=== PATIENT | female | born 1955 | race African-American/Black ===

== ENCOUNTER 2023-06-06 10:30 | Emergency (ER) | payer MEDICARE, SELFPAY ==
--- NOTE | ~2023-06-06 | XR_ITS ---
EXAMINATION: XR chest 2V DATE: 06/06/2023 11:18 INDICATION: Productive cough. TECHNIQUE: Frontal and lateral views of the chest were obtained. COMPARISON: None. FINDINGS: There is no pneumonia, pleural effusion, or pneumothorax. The heart size is normal. Epidura l electrodes are noted. There are changes of posterior fusion procedure in lumbar spine. IMPRESSION: 1. No acute cardiopulmonary disease. Reviewed, dictated and finalized at location E. 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
--- NOTE | 2023-06-06 10:37 | ED.URI ---
HPI - URI/Sore Throat General Chief Complaint: Upper Respiratory Infection Stated Complaint: discharge both eyes,ear pain,cough Time Seen by Provider: 06/06/23 10:37 Source: patient Mode of arrival: ambulatory Limitations: no limitations History of Present Illness HPI Narrative: Trini is a 67-year-old female patient presenting to the clinic today with complaints of a cough x1 month. Cough is productive bringing up some yellow phlegm. She denies any shortness of breath, fever, chills, or body aches. Also reports she is having some discharge coming from both of her eyes and bilateral ear pain. MD elicited complaint: sore throat and nasal congestion Related Data Home Medications Medication Instructions Recorded Confirmed aspirin 81 mg tablet,delayed 81 mg PO DAILY 10/07/19 06/06/23 release atorvastatin 40 mg tablet 40 mg PO QPM 10/07/19 06/06/23 cyanocobalamin (vitamin B-12) 100 mcg subcut MONTHLY 10/07/19 06/06/23 1,000 mcg/mL injection kit docusate sodium 50 mg capsule 50 mg PO DAILY 10/07/19 06/06/23 (Stool Softener) ergocalciferol (vitamin D2) 1,250 50,000 unit PO WEEKLY 10/07/19 06/06/23 mcg (50,000 unit) capsule fentanyl 50 mcg/hr transdermal 1 patch transdermal Q72H 10/07/19 06/06/23 patch (Duragesic) flash glucose sensor (FreeStyle #1 ea 10/07/19 06/06/23 Todd 14 Day Sensor kit) hydrochlorothiazide 25 mg tablet 25 mg PO DAILY 10/07/19 06/06/23 hydromorphone 4 mg tablet 4 mg PO .QD 10/07/19 06/06/23 (Dilaudid) insulin aspart U-100 100 unit/mL 12 unit subcut TID 10/07/19 06/06/23 (3 mL) subcutaneous pen (Novolog FlexPen U-100 Insulin aspart) ipratropium 20 mcg-albuterol 100 1 puff inhalation QID 10/07/19 06/06/23 mcg/actuation mist for inhalation (Combivent Respimat) metoprolol tartrate 25 mg tablet 12.5 mg PO BID 10/07/19 06/06/23 nitroglycerin 0.4 mg sublingual 0.4 mg sublingual Q5M PRN Chest 10/07/19 06/06/23 tablet Pain pregabalin 100 mg capsule (Lyrica) 100 mg PO TID 10/07/19 06/06/23 prucalopride 2 mg tablet 2 mg PO DAILY 10/07/19 06/06/23 (Motegrity) insulin glargine 100 unit/mL (3 30 unit subcut QAM 01/01/20 06/06/23 mL) subcutaneous pen (Lantus Solostar U-100 Insulin) buprenorphine HCl 750 mcg buccal See Rx Instructions .Route .COMPLEX 06/06/23 06/06/23 film (Belbuca) clonazepam 0.5 mg tablet 0.5 mg PO HS 06/06/23 06/06/23 cyclobenzaprine 10 mg tablet See Rx Instructions .Route .COMPLEX 06/06/23 06/06/23 folic acid 1 mg tablet 1 mg PO DAILY 06/06/23 06/06/23 glimepiride 4 mg tablet 4 mg PO BID 06/06/23 06/06/23 omeprazole 20 mg capsule,delayed 20 mg PO DAILY 06/06/23 06/06/23 release sertraline 25 mg tablet 25 mg PO DAILY 06/06/23 06/06/23 Allergies Allergy/AdvReac Type Severity Reaction Status Date / Time lisinopril Allergy Severe facial Verified 06/06/23 10:46 swelling ciprofloxacin Allergy Unknown Unknown Verified 06/06/23 10:46 oxybutynin Allergy Unknown Unknown Verified 06/06/23 10:46 Sulfa (Sulfonamide Allergy Unknown Unknown Verified 06/06/23 10:46 Antibiotics) Review of Systems Review of Systems: Pertinent positives per HPI. Patient denies any fever, chills, rash, headache, visual changes, dizziness, shortness of breath, chest pain, palpitations, nausea, vomiting, diarrhea, constipation, abdominal pain, or any urinary issues. [facility] Past Medical History Medical History (Updated 06/06/23 @ 12:11 by Andrés Rueda APRN) Back pain Chest pain COPD (chronic obstructive pulmonary disease) Depression Diabetes Hypertension Shortness of breath Surgical History Surgical History H/O endoscopy 06/24/19 and 08/19/19 Family History Family History Other ADD (attention deficit disorder) Alcoholism Asthma Cataracts, bilateral Depression Diabetes mellitus Hypertension Psychiatric problem Seizure disorder Short
[2023-06-06 10:51] VITALS: BP 135/81; PULSE 99; RESP 16; TEMP 36.3; O2SAT 99
== END 2023-06-06 11:52 | disposition home or self-care (01) ==
PROVIDERS: Emergency Provider Nurse Practitioner Family
DX: J40 Bronchitis, not specified as acute or chronic (principal); H10.9 Unspecified conjunctivitis; F17.210 Nicotine dependence, cigarettes, uncomplicated; J44.9 Chronic obstructive pulmonary disease, unspecified; E11.9 Type 2 diabetes mellitus without complications; I10 Essential (primary) hypertension; F32.A Depression, unspecified
CPT/HCPCS: 71046; 99213; G0463

== ENCOUNTER 2024-09-23 10:42 | Emergency (ER) | payer MEDICARE, SELFPAY ==
--- NOTE | ~2024-09-23 | XR_ITS ---
XR chest 2V Ordering provider: Andrés Rueda APRN History: 68 years Female with . cough/sob/crackles in lower bases . Comparison: June 06, 2023 FINDINGS: MEDIASTINUM: The cardiac silhouette is not enlarged. LUNGS: No infiltrates, effusions or pneumothorax. OTHER: No free air under the diaphragm. Spinal stimulator is seen in the midthoracic area. Dextroscoliosis. Degenerative changes of the spine. IMPRESSION: No acute cardiopulmonary pathology. Reviewed, dictated and finalized at location A.
[2024-09-23 10:55] VITALS: BP 101/86; PULSE 86; RESP 18; TEMP 36.5; O2SAT 100
--- NOTE | 2024-09-23 10:57 | ED_ITS ---
HPI - URI/Sore Throat General Chief Complaint: Upper Respiratory Infection Stated Complaint: chest hurts,ears hurt, bad cough Time Seen by Provider: 09/23/24 10:55 Source: patient Mode of arrival: ambulatory Limitations: no limitations History of Present Illness HPI Narrative: Trini is a 68-year-old female patient presenting to the clinic today with complaints of chest discomfort with coughing, bilateral ear pain, runny nose, sore throat, and chest congestion x3 days. She reports she does feel short of breath when she is coughing and is having some chest discomfort with the cough. Cough is productive with thick yellow sputum. She is a current smoker. One pack per day- smokes and she has been 14. No known fever. MD elicited complaint: sore throat and nasal congestion Related Data Home Medications ?Medication ?Instructions ?Recorded ?Confirmed ?Last Taken ?Type aspirin 81 mg tablet,delayed 81 mg PO DAILY 10/07/19 06/06/23 Unknown History release atorvastatin 40 mg tablet 40 mg PO QPM 10/07/19 06/06/23 Unknown History cyanocobalamin (vitamin B-12) 100 mcg subcut MONTHLY 10/07/19 06/06/23 Unknown History 1,000 mcg/mL injection kit ergocalciferol (vitamin D2) 1,250 50,000 unit PO WEEKLY 10/07/19 06/06/23 Unknown History mcg (50,000 unit) capsule flash glucose sensor (FreeStyle #1 ea 10/07/19 06/06/23 Unknown History Todd 14 Day Sensor kit) hydrochlorothiazide 25 mg tablet 25 mg PO DAILY 10/07/19 06/06/23 Unknown History insulin aspart U-100 100 unit/mL 12 unit subcut TID 10/07/19 06/06/23 Unknown History (3 mL) subcutaneous pen (Novolog FlexPen U-100 Insulin aspart) ipratropium 20 mcg-albuterol 100 1 puff inhalation QID 10/07/19 06/06/23 Unknown History mcg/actuation mist for inhalation (Combivent Respimat) metoprolol tartrate 25 mg tablet 12.5 mg PO BID 10/07/19 06/06/23 Unknown History pregabalin 100 mg capsule (Lyrica) 100 mg PO TID 10/07/19 06/06/23 Unknown History buprenorphine HCl 750 mcg buccal See Rx Instructions .Route .COMPLEX 06/06/23 06/06/23 Unknown History film (Belbuca) clonazepam 0.5 mg tablet 0.5 mg PO HS 06/06/23 06/06/23 Unknown History cyclobenzaprine 10 mg tablet See Rx Instructions .Route .COMPLEX 06/06/23 06/06/23 Unknown History folic acid 1 mg tablet 1 mg PO DAILY 06/06/23 06/06/23 Unknown History glimepiride 4 mg tablet 4 mg PO BID 06/06/23 06/06/23 Unknown History omeprazole 20 mg capsule,delayed 20 mg PO DAILY 06/06/23 06/06/23 Unknown History release sertraline 25 mg tablet 25 mg PO DAILY 06/06/23 06/06/23 Unknown History Allergies Allergy/AdvReac Type Severity Reaction Status Date / Time lisinopril Allergy Severe facial Verified 09/23/24 11:04 swelling ciprofloxacin Allergy Unknown Unknown Verified 09/23/24 11:04 oxybutynin Allergy Unknown Unknown Verified 09/23/24 11:04 Sulfa (Sulfonamide Allergy Unknown Unknown Verified 09/23/24 11:04 Antibiotics) Review of Systems Review of Systems: Pertinent positives per HPI. Patient denies any fever, chills, rash, headache, visual changes, dizziness, palpitations, nausea, vomiting, diarrhea, constipation, abdominal pain, or any urinary issues. [facility] Past Medical History Medical History (Updated 09/23/24 @ 11:17 by Andrés Rueda APRN) Shortness of breath Hypertension Diabetes Depression Chest pain COPD (chronic obstructive pulmonary disease) Back pain Surgical History Surgical History H/O endoscopy 06/24/19 and 08/19/19 Family History Family History Other ADD (attention deficit disorder) Alcoholism Asthma Cataracts, bilateral Depression Diabetes mellitus Hypertension Psychiatric problem Seizure disorder Shortness of breath Social History Social History Smoking packs per day: 1 Smoking cigarettes per day: 20.0 Years smoked: 40 Smoking pack-years: 40.00 Smoking status: Current every day smoker Tobacco type: cigarettes Second hand tobacco smoke exposure: Yes Additional smoking assessment comments: has tried to quit Alcohol intake: never Substance use: never Substance use type: does not use Living arrangements: with family Additional living arrangements comments: daughter and son in law Occupation/Education: retired 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 There is no relevant family history pertinent to the patient complaint. Exam Narrative: General: Well-developed, well nourished, in no apparent distress Head: Normocephalic, atraumatic Eyes: Pupils equally round and reactive to light bilaterally, EOM intact, sclera and conjunctive clear, no discharge, lids normal Ears: TMs intact and congested, ear canals clear, no drainage, grossly hearing normal. Nose: Nares patent, clear nasal discharge, no inflammation, no sinus tenderness. Mouth: Oral pharynx red without lesions or masses, good dentition, MMM. Postna sapna drip Neck: Supple, trachea midline, no enlargement of anterior or posterior cervical nodes, no thyroid masses or goiter palpable. Cardio: Regular rate and rhythm, s1 and s2 normal, no murmur appreciated. Resp: Crackles in bilateral lower bases, with some expiratory rhonchi in the mid lung zones, no rales, wheezing, or rubs Course Course Emergency Course: Portions of this record may have been created with voice recognition software. Level of Care: Express Care Visit Vital Signs Vital signs: Vital Signs Temperature 36.5 C 09/23/24 10:55 Pulse Rate 86 09/23/24 10:55 Respiratory Rate 18 09/23/24 10:55 Blood Pressure 101/86 09/23/24 10:55 Pulse Oximetry 100 09/23/24 10:55 Oxygen Delivery Room Air 09/23/24 10:55 Temperature 36.5 C 09/23/24 10:55 Pulse Rate 86 09/23/24 10:55 Respiratory Rate 18 09/23/24 10:55 Blood Pressure 101/86 09/23/24 10:55 Pulse Oximetry 100 09/23/24 10:55 Oxygen Delivery Room Air 09/23/24 10:55 Vital signs reviewed MDM - URI/Sore Throat MDM Narrative Medical decision making narrative: At the time of visit patient is resting comfortably on the exam table. Patient appears to be nontoxic. Labs: Influenza, COVID and strep test was performed. Strep test was negative. We will send strep for culture. Influenza testing was positive for influenza A and COVID testing was negative. Diagnostics: Chest x-ray was performed and was negative for any acute cardiopulmonary process. Plan: I suspect patient has influenza a/COPD exacerbation. Prescription for prednisone and azithromycin was sent to the pharmacy. Supportive measures were discussed with the patient and they voiced understanding discharge instructions and agrees to treatment plan. Return precautions reviewed Differential Diagnosis Differential diagnosis: Likely upper respiratory infection, otitis media, sinusitis, viral infection, bronchitis, influenza, pharyngitis and other (COVID) Lab Data Labs: Lab Results 09/23/24 09/23/24 Range/Units 11:12 11:13 POC Influenza A Ag Positive (Negative) POC Influenza B Ag Negative (Negative) POC SARS CoV-2 Ag Negative (Negative) POC Grp A Strep Screen Negative (Negative) Imaging Data Radiologist's impression: ITS Impressions Chest X-Ray 09/23/24 11:11 IMPRESSION: No acute cardiopulmonary pathology. Discharge Plan Discharge Clinical Impression: Influenza A, Acute exacerbation of chronic obstructive pulmonary disease Patient Disposition: Home Condition: Stable Instructions: Antibiotic Form, Influenza (ED), COPD (Chronic Obstructive Pulmonary Disease) (ED) Additional Instructions: Influenza testing was positive for influenza A. COVID and strep testing were negative. We will send strep for culture. Take prescription medications only as prescribed-prednisone and azithromycin Chest x-ray is negative for any acute cardiopulmonary process. Increase fluids and stay well hydrated Tylenol/motrin for pain/fever Flonase and OTC antihistamines as directed Vicks vapor rub to open sinuses Sinus rinses for congestion Cepacol spray, cough drops, throat lozenges, warm tea with honey/lemon, gargle salt water to soothe throat BRAT diet for diarrhea Clear liquids x 24 hours then advance as tolerated for nausea/vomiting Go to the ED if you develop a worsening in your condition- high fever not controlled by Tylenol or Motrin, dehydration, weakness, lethargy, shortness of breath, or chest pain. Follow up with your PCP in 3-5 days if symptoms persist. Patient Language: Bel[place]an Prescriptions: New azithromycin 250 mg tablet See Rx Instructions .ROUTE .COMPLEX Qty: 6 0RF Rx Instructions: For 250 mg dose pack: take 500 mg today (day 1), then 250 mg for 4 days (days 2-5) prednisone 20 mg tablet 40 mg PO DAILY 5 Days Qty: 10 0RF No Action clonazepam 0.5 mg tablet 0.5 mg PO HS cyclobenzaprine 10 mg tablet See Rx Instructions .ROUTE .COMPLEX Rx Instructions: Rx glimepiride 4 mg tablet 4 mg PO BID sertraline 25 mg tablet 25 mg PO DAILY omeprazole 20 mg capsule,delayed release(DR/EC) 20 mg PO DAILY folic acid 1 mg tablet 1 mg PO DAILY buprenorphine HCl [Belbuca] 750 mcg film See Rx Instructions .ROUTE .COMPLEX Rx Instructions: Rx aspirin 81 mg tablet,delayed release (DR/EC) 81 mg PO DAILY ergocalciferol (vitamin D2) 1,250 mcg (50,000 unit) capsule 50,000 unit PO WEEKLY metoprolol tartrate 25 mg tablet 12.5 mg PO BID cyanocobalamin (vitamin B-12) 1,000 mcg/mL kit 100 mcg SUB-Q MONTHLY pregabalin [Lyrica] 100 mg capsule 100 mg PO TID hydrochlorothiazide 25 mg tablet 25 mg PO DAILY Combivent Respimat 20-100 mcg/actuation mist 1 puff INHALATION QID Rx Instructions: space evenly during waking hours atorvastatin 40 mg tablet 40 mg PO QPM insulin aspart U-100 [Novolog FlexPen U-100 Insulin] 100 unit/mL (3 mL) insulin pen 12 unit SUB-Q TID Rx Instructions: WITH MEALS (DME) FreeStyle Todd 14 Day Sensor Kit See Rx Instructions .ROUTE .MEDSUPPLY Qty: 1 Rx Instructions: For use to check BS daily; replace every 14 days Follow-up/Referrals: PHYSICIAN,SUBMERSIBLE PILOT [Primary Care Provider] - Time of Disposition: 11:17 Quality NIHSS Nursing Documentation ED NIHSS nursing documentation: reviewed/agree
[2024-09-23 11:14] LABS: EDINFLUASCREEN Positive (Negative); EDINFLUBSCREEN Negative (Negative)
[2024-09-23 11:15] LABS: EDCOVIDSCREEN Negative (Negative); EDSTREPNEGPOS1 Negative (Negative)
== END 2024-09-23 11:21 | disposition home or self-care (01) ==
PROVIDERS: Emergency Provider Nurse Practitioner Family
DX: J10.1 Influenza due to other identified influenza virus with other respiratory manifestations (principal); J44.1 Chronic obstructive pulmonary disease with (acute) exacerbation; Z20.822 Contact with and (suspected) exposure to COVID-19; F17.210 Nicotine dependence, cigarettes, uncomplicated; I10 Essential (primary) hypertension; E11.9 Type 2 diabetes mellitus without complications; Z79.4 Long term (current) use of insulin; Z79.82 Long term (current) use of aspirin
CPT/HCPCS: 71046; 87081; 87426; 87804; 87880; 99213; G0463

== ENCOUNTER 2024-12-22 13:28 | Emergency (ER) | payer MEDICARE, SELFPAY ==
--- NOTE | ~2024-12-22 | XR_ITS ---
EXAMINATION: XR chest 2V 12/22/2024 13:53 INDICATION: Cough and shortness of breath PROCEDURE: 2 view chest COMPARISON: 09/23/2024 FINDINGS: The lungs are clear. The cardiomediastinal silhouette is within normal limits. There are no pleural effusions. There is no pneumothorax suspected. IMPRESSION: 1: NO ACUTE CARDIOPULMONARY DISEASE. Reviewed, dictated and finalized at location A.
[2024-12-22 13:40] VITALS: BP 140/74; PULSE 94; RESP 16; TEMP 36.6; O2SAT 98
--- NOTE | 2024-12-22 13:49 | ED.GENADULT ---
HPI - General Adult General Chief complaint: Upper Respiratory Infection Stated complaint: cough Source: patient Mode of arrival: ambulatory Limitations: no limitations History of Present Illness HPI narrative: Pt presents for evaluation of sick symptoms for the past four days. Symptoms include fever, chills, sinus congestion, cough, SOB, sore throat 2/2 coughing, body aches, nausea and vomiting. She has an underlying history of COPD. She smokes 1/2 ppd. She denies any recent sick contacts. She has not been using her neb machine and has only been using albuterol MDI at most once per day. She has been taking tylenol for her symptoms. She is diabetic and states her home blood sugars have been too high to measure. Related Data Home Medications ?Medication ?Instructions ?Recorded ?Confirmed ?Last Taken ?Type aspirin 81 mg tablet,delayed 81 mg PO DAILY 10/07/19 06/06/23 Unknown History release atorvastatin 40 mg tablet 40 mg PO QPM 10/07/19 06/06/23 Unknown History cyanocobalamin (vitamin B-12) 100 mcg subcut MONTHLY 10/07/19 06/06/23 Unknown History 1,000 mcg/mL injection kit ergocalciferol (vitamin D2) 1,250 50,000 unit PO WEEKLY 10/07/19 06/06/23 Unknown History mcg (50,000 unit) capsule flash glucose sensor (FreeStyle #1 ea 10/07/19 06/06/23 Unknown History Todd 14 Day Sensor kit) hydrochlorothiazide 25 mg tablet 25 mg PO DAILY 10/07/19 06/06/23 Unknown History insulin aspart U-100 100 unit/mL 12 unit subcut TID 10/07/19 06/06/23 Unknown History (3 mL) subcutaneous pen (Novolog FlexPen U-100 Insulin aspart) ipratropium 20 mcg-albuterol 100 1 puff inhalation QID 10/07/19 06/06/23 Unknown History mcg/actuation mist for inhalation (Combivent Respimat) metoprolol tartrate 25 mg tablet 12.5 mg PO BID 10/07/19 06/06/23 Unknown History pregabalin 100 mg capsule (Lyrica) 100 mg PO TID 10/07/19 06/06/23 Unknown History buprenorphine HCl 750 mcg buccal See Rx Instructions .Route .COMPLEX 06/06/23 06/06/23 Unknown History film (Belbuca) clonazepam 0.5 mg tablet 0.5 mg PO HS 06/06/23 06/06/23 Unknown History cyclobenzaprine 10 mg tablet See Rx Instructions .Route .COMPLEX 06/06/23 06/06/23 Unknown History folic acid 1 mg tablet 1 mg PO DAILY 06/06/23 06/06/23 Unknown History glimepiride 4 mg tablet 4 mg PO BID 06/06/23 06/06/23 Unknown History omeprazole 20 mg capsule,delayed 20 mg PO DAILY 06/06/23 06/06/23 Unknown History release sertraline 25 mg tablet 25 mg PO DAILY 06/06/23 06/06/23 Unknown History Allergies Allergy/AdvReac Type Severity Reaction Status Date / Time lisinopril Allergy Severe facial Verified 12/22/24 13:30 swelling ciprofloxacin Allergy Unknown Unknown Verified 12/22/24 13:30 oxybutynin Allergy Unknown Unknown Verified 12/22/24 13:30 Sulfa (Sulfonamide Allergy Unknown Unknown Verified 12/22/24 13:30 Antibiotics) Review of Systems Review of Systems: CONSTITUTIONAL: Reports fever and chills EYES: Denies visual changes, redness, or discharge. ENT: Reports sinus congestion, nasal drainage and sore throat 2/2 coughing CARDIOVASCULAR: Denies chest pain, palpitations, or edema. RESPIRATORY: Reports cough and SOB GASTROINTESTINAL: Reports nausea and vomiting. Denies abdominal pain GENITOURINARY: Denies dysuria or hematuria. SKIN: Denies rash or itching. MUSCULOSKELETAL: Reports generalized body aches NEUROLOGIC: Reports headache. Denies numbness, dizziness, or weakness. PSYCHIATRIC: Denies anxiety or depression. [facility] Past Medical History Medical History (Updated 12/22/24 @ 14:38 by Harris Ding, SONG, ) Shortness of breath Hypertension Diabetes Depression Chest pain COPD (chronic obstructive pulmonary disease) Back pain Surgical History Surgical History H/O endoscopy 06/24/19 and 08/19/19 Family History Family History Other ADD (attention deficit disorder) Alcoholism Asthma Cataracts, bilateral Depression Diabetes mellitus Hypertension Psychiatric problem Seizure disorder Shortness of breath Social History Social History (Updated 12/22/24 @ 13:54 by Harris Ding, 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 EYES: PERRLA and EOMI. ENT: Nares clear, no rhinorrhea or epistaxis. Mucous membranes moist. Oropharynx without tonsillar hypertrophy exudate or other lesions. Bilateral TMs pearly schwarz nonbulging NECK: Supple. No adenopathy or masses. No carotid bruits or JVD CHEST: cough present on exam. Diminished lung sounds bilaterally. Poor inspiratory effort HEART: Regular rate and rhythm. No murmur heard. Normal peripheral pulses. ABDOMEN: Soft, nontender, nondistended, normal active bowel sounds. EXTREMITIES: Normal range of motion. No edema. SKIN: Warm, dry, no rash. NEURO: No focal deficits. Alert and oriented x3. PSYCH: Normal mood and affect. Course Course Emergency Course: This is a 68-year-old female who presented for evaluation of sick symptoms. COVID, influenza were both negative. Chest x-ray was negative. She was given steroids and nebulizer treatment. Her exam is consistent with acute viral syndrome and COPD exacerbation. Advised not to smoke. Discharge with prednisone. Advised she monitor blood sugar closely at home. Albuterol nebs sent to pharmacy. Order was later clarified by the pharmacy. She should follow up with primary provider and go to the ER for worsening symptoms. Patient in agreement with plan of care. Level of Care: Express Care Visit Vital Signs Vital signs: Vital Signs Temperature 36.6 C 12/22/24 13:40 Pulse Rate 94 12/22/24 13:40 Respiratory Rate 16 12/22/24 13:40 Blood Pressure 140/74 12/22/24 13:40 Pulse Oximetry 98 12/22/24 13:40 Oxygen Delivery Room Air 12/22/24 13:40 Temperature 36.6 C 12/22/24 13:40 Pulse Rate 94 12/22/24 13:40 Respiratory Rate 16 12/22/24 13:40 Blood Pressure 140/74 12/22/24 13:40 Pulse Oximetry 98 12/22/24 13:40 Oxygen Delivery Room Air 12/22/24 13:40 Medical Decision Making Vital Signs Vital Signs: Vital Signs Temperature 36.6 C 12/22/24 13:40 Pulse Rate 94 12/22/24 13:40 Respiratory Rate 16 12/22/24 13:40 Blood Pressure 140/74 12/22/24 13:40 Pulse Oximetry 98 12/22/24 13:40 Oxygen Delivery Room Air 12/22/24 13:40 Temperature 36.6 C 12/22/24 13:40 Pulse Rate 94 12/22/24 13:40 Respiratory Rate 16 12/22/24 13:40 Blood Pressure 140/74 12/22/24 13:40 Pulse Oximetry 98 12/22/24 13:40 Oxygen Delivery Room Air 12/22/24 13:40 Lab Data Labs: Lab Results 12/22/24 12/22/24 Range/Units 13:36 13:54 POC Capillary Glucose 201 H (65-105) mg/dl POC Influenza A Ag Negative (Negative) POC Influenza B Ag Negative (Negative) POC SARS CoV-2 Ag Negative (Negative) Imaging Data Radiologist's impression: EXAMINATION: XR chest 2V 12/22/2024 13:53 INDICATION: Cough and shortness of breath PROCEDURE: 2 view chest COMPARISON: 09/23/2024 FINDINGS: The lungs are clear. The cardiomediastinal silhouette is within normal limits. There are no pleural effusions. There is no pneumothorax suspected. IMPRESSION: 1: NO ACUTE CARDIOPULMONARY DISEASE. Discharge Plan Discharge Clinical Impression: COPD exacerbation, Upper respiratory infection, viral Patient Disposition: Home Condition: Stable Instructions: Antibiotic Form, How to Stop Smoking (ED), Upper Respiratory Infection (ED), COPD (Chronic Obstructive Pulmonary Disease) (DC) Patient Language: Hungarian Prescriptions: New prednisone 20 mg tablet 40 mg PO DAILY 5 Days Qty: 10 0RF albuterol sulfate 2.5 mg/0.5 mL solution for nebulization 2.5 mg inhalation Q4-6H PRN (Reason: shortness of breath or wheezing) Qty: 30 0RF No Action clonazepam 0.5 mg tablet 0.5 mg PO HS cyclobenzaprine 10 mg tablet See Rx Instructions .ROUTE .COMPLEX Rx Instructions: Rx glimepiride 4 mg tablet 4 mg PO BID sertraline 25 mg tablet 25 mg PO DAILY omeprazole 20 mg capsule,delayed release(DR/EC) 20 mg PO DAILY folic acid 1 mg tablet 1 mg PO DAILY buprenorphine HCl [Belbuca] 750 mcg film See Rx Instructions .ROUTE .COMPLEX Rx Instructions: Rx aspirin 81 mg tablet,delayed release (DR/EC) 81 mg PO DAILY ergocalciferol (vitamin D2) 1,250 mcg (50,000 unit) capsule 50,000 unit PO WEEKLY metoprolol tartrate 25 mg tablet 12.5 mg PO BID cyanocobalamin (vitamin B-12) 1,000 mcg/mL kit 100 mcg SUB-Q MONTHLY pregabalin [Lyrica] 100 mg capsule 100 mg PO TID hydrochlorothiazide 25 mg tablet 25 mg PO DAILY Combivent Respimat 20-100 mcg/actuation mist 1 puff INHALATION QID Rx Instructions: space evenly during waking hours atorvastatin 40 mg tablet 40 mg PO QPM insulin aspart U-100 [Novolog FlexPen U-100 Insulin] 100 unit/mL (3 mL) insulin pen 12 unit SUB-Q TID Rx Instructions: WITH MEALS (DME) FreeStyle Todd 14 Day Sensor Kit See Rx Instructions .ROUTE .MEDSUPPLY Qty: 1 Rx Instructions: For use to check BS daily; replace every 14 days Follow-up/Referrals: Anne,MD Sammy [Primary Care Provider] - Time of Disposition: 14:40
[2024-12-22] MEDS: IPRATROPIUM BR 0.02% INH SOLN 0.5 MG/2.5 ML VIAL INHALATION (14:06)
[2024-12-22] MEDS: ALBUTEROL SULFATE NEB 2.5 MG/3 ML INH INHALATION (14:06)
[2024-12-22 14:14] LABS: EDCOVIDSCREEN Negative (Negative); EDINFLUASCREEN Negative (Negative); EDINFLUBSCREEN Negative (Negative)
--- NOTE | 2024-12-22 14:54 | PC.NURSE ---
12/22/2024 at 1440- Ambulated patient in hallway with Pulse oximeter on. With walking O2 Saturations 95-96 and HR 100-103.
== END 2024-12-22 14:50 | disposition home or self-care (01) ==
PROVIDERS: Emergency Provider Nurse Practitioner; PCP Family Medicine
DX: J44.1 Chronic obstructive pulmonary disease with (acute) exacerbation (principal); J06.9 Acute upper respiratory infection, unspecified; Z20.822 Contact with and (suspected) exposure to COVID-19; F17.210 Nicotine dependence, cigarettes, uncomplicated; I10 Essential (primary) hypertension; E11.9 Type 2 diabetes mellitus without complications; Z79.4 Long term (current) use of insulin; Z79.84 Long term (current) use of oral hypoglycemic drugs; F32.A Depression, unspecified; Z79.82 Long term (current) use of aspirin
CPT/HCPCS: 71046; 82948; 87426; 87804; 94640; 96372; 99213; G0463; J2919